=== PATIENT | male | born 1980 | race Caucasian/White ===

== ENCOUNTER 2017-03-13 10:00 | Emergency (ER) | payer BC ==
[~2017-03-13] VITALS: Ht 182.9 cm; Wt 82.0 kg
[~2017-03-13 10:00] MED LIST: NAPROSYN500 MG PO
[2017-03-13] MEDS ORDERED: BACTRIM DS1 TAB PO (10:53)
[2017-03-13 11:04] VITALS: BP 136/74
[2017-03-14] MEDS ORDERED: CEPHALEXIN500 MG PO (23:06)
== END 2017-03-13 11:05 | disposition home or self-care (01) | DRG 603 ==
LOC: ED 10:00
PROC: 0H9EXZZ Drainage of Left Lower Arm Skin, External Approach (ICD-10-PCS; principal; 2017-03-13)
DX: L02.414 Cutaneous abscess of left upper limb (principal)

== ENCOUNTER 2017-03-14 22:11 | Emergency (ER) | payer BC ==
[~2017-03-14] VITALS: Ht 182.9 cm; Wt 77.3 kg
[~2017-03-14 22:11] MED LIST changes: +BACTRIM DS1 TAB PO
[2017-03-14] MEDS ORDERED: CEPHALEXIN500 MG PO (23:06)
[2017-03-14 23:30] VITALS: BP 132/67
== END 2017-03-14 23:30 | disposition home or self-care (01) | DRG 603 ==
LOC: ED 22:11
DX: L02.414 Cutaneous abscess of left upper limb (principal); F17.210 Nicotine dependence, cigarettes, uncomplicated

== ENCOUNTER 2017-07-29 20:36 | Emergency (ER) | payer BC ==
[~2017-07-29] VITALS: Ht 182.9 cm; Wt 75.0 kg
[~2017-07-29 20:36] MED LIST changes: +CEPHALEXIN500 MG PO
[2017-07-29] MEDS ORDERED: ULTRAM50 M1 PO (21:14)
[2017-07-29] MEDS ORDERED: CEPHALEXIN500 MG PO (21:14)
[2017-07-29 21:36] VITALS: BP 110/74
== END 2017-07-29 21:45 | disposition home or self-care (01) | DRG 603 ==
LOC: ED 20:36
DX: L03.114 Cellulitis of left upper limb (principal); L03.012 Cellulitis of left finger; R22.32 Localized swelling, mass and lump, left upper limb

== ENCOUNTER 2017-07-31 19:07 | Emergency (ER) | payer BC ==
[~2017-07-31] VITALS: Ht 182.9 cm; Wt 83.8 kg
[~2017-07-31 19:07] MED LIST changes: +ULTRAM50 M1 PO
[2017-07-31] MEDS ORDERED: BACTRIM DS1 TAB PO (20:10)
[2017-07-31] MEDS ORDERED: LORTAB 10-325 M1 TAB PO (20:10)
[2017-07-31 20:25] VITALS: BP 121/77
== END 2017-07-31 20:25 | disposition home or self-care (01) | DRG 603 ==
LOC: ED 19:07
PROC: 0H9GXZZ Drainage of Left Hand Skin, External Approach (ICD-10-PCS; principal; 2017-07-31)
DX: L02.512 Cutaneous abscess of left hand (principal); B95.61 Methicillin susceptible Staphylococcus aureus infection as the cause of diseases classified elsewhere; F17.210 Nicotine dependence, cigarettes, uncomplicated

== ENCOUNTER 2018-04-28 00:47 | Emergency (ER) | payer BC ==
[~2018-04-28] VITALS: Ht 180.3 cm; Wt 82.6 kg
[~2018-04-28 00:47] MED LIST changes: +LORTAB 10-325 M1 TAB PO
[2018-04-28] MEDS ORDERED: PERCOCET 5/325M1 TAB PO (04:17)
[2018-04-28 04:40] VITALS: BP 118/77
== END 2018-04-28 04:42 | disposition home or self-care (01) | DRG 563 ==
LOC: ED 00:47
DX: S52.501A Unspecified fracture of the lower end of right radius, initial encounter for closed fracture (principal); M25.562 Pain in left knee; F17.210 Nicotine dependence, cigarettes, uncomplicated; W03.XXXA Other fall on same level due to collision with another person, initial encounter; Y93.64 Activity, baseball; Y92.320 Baseball field as the place of occurrence of the external cause

== ENCOUNTER 2018-10-02 16:00 | Emergency (ER) | payer BC ==
[~2018-10-02] VITALS: Ht 180.3 cm; Wt 87.0 kg
[~2018-10-02 16:00] MED LIST changes: +PERCOCET 5/325M1 TAB PO
[2018-10-02] MEDS ORDERED: TRAMADOL HYDROC50 MG PO (18:28)
[2018-10-02 18:35] VITALS: BP 127/75
== END 2018-10-02 18:35 | disposition home or self-care (01) | DRG 204 ==
LOC: ED 16:00
DX: R07.81 Pleurodynia (principal); W01.0XXA Fall on same level from slipping, tripping and stumbling without subsequent striking against object, initial encounter; Y93.66 Activity, soccer; Y92.830 Public park as the place of occurrence of the external cause

== ENCOUNTER 2019-04-29 06:24 | Emergency (ER) | payer BC, OTHER ==
[~2019-04-29] VITALS: Ht 180.3 cm; Wt 84.0 kg
[~2019-04-29 06:24] MED LIST changes: +TRAMADOL HYDROC50 MG PO
[2019-04-29 06:54] LABS: HEMATOCRIT 46.6 % (39.0-50.0); HEMOGLOBIN 16.1 g/dl (14.0-18.0); IMMATURE GRANULOCYTES 0.2 % (0.0-5.0); MEAN CELL VOLUME 87.4 fL CALC (80.0-100.0); MEAN CORPUSCULAR HGB 30.2 pG CALC (26.0-32.0); MEAN CORPUSCULAR HGB CONC 34.5 g/L CALC (32.0-36.0); NEUT# 6.02 thou/uL (1.82-7.42); RED BLOOD COUNT 5.33 mill/uL (4.70-6.10); RED CELL DISTRI WIDTH 13.1 % (11.5-15.5)
[2019-04-29 07:32] LABS: ALBUMIN 4.4 g/dL (3.2-5.0); ALKALINE PHOSPHATASE 63 u/l (38-126); AMYLASE 43 u/l (30-110); ANION GAP 15 (6-22 (CALC)); BILIRUBIN, TOTAL 0.8 mg/dL (0.0-1.4); BUN 19 mg/dL (9-20); BUN/CREATININE RATIO 19 (12-20 (CALC)); CARBON DIOXIDE 24 mmol/l (22-30); CHLORIDE 106 mmol/l (95-108); GFR > 60 ML/MIN (>=60 (CALC)); GFR FOR AFR.AMER. > 60 ML/MIN (>=60 (CALC)); LIPASE 105 u/l (23-300); POTASSIUM 4.3 mmol/l (3.5-5.1); SGOT/AST 21 u/l (17-59); SODIUM 141 mmol/l (137-146); TOTAL PROTEIN 7.1 g/dL (6.3-8.2)
[2019-04-29 08:10] LABS: URINE BLOOD DIPSTICK LARGE (NEGATIVE); URINE GLUCOSE - DIPSTICK NEGATIVE (NEGATIVE); URINE KETONE TRACE mg/dL (NEGATIVE); URINE LEUK ESTERASE NEGATIVE (NEGATIVE); URINE NITRITE - DIPSTICK NEGATIVE (Negative); URINE PH 5.5 (4.5-8.0); URINE PROTEIN - DIPSTICK 30 mg/dL (NEG-TRACE); URINE SPECIFIC GRAVITY >=1.030
[2019-04-29] MEDS ORDERED: MOTRIN400 MG PO (08:10)
[2019-04-29] MEDS ORDERED: TAMSULOSIN0.4 MG PO (08:10)
[2019-04-29] MEDS ORDERED: CEPHALEXIN500 MG PO (08:10)
[2019-04-29 08:11] LABS: URINE BILIRUBIN - DIPSTICK SMALL (NEGATIVE); URINE COLOR DK. YELLOW
[2019-04-29] MEDS ORDERED: HYDROCO/APAP1 TA9 PO (08:12)
[2019-04-29 08:13] LABS: URINE EPITHELIAL CELLS RARE EPI/hpf (0-FEW); URINE MUCUS FEW hpf (NONE-FEW); URINE RBC 25-50 RBC/hpf (0-5)
[2019-04-29 08:34] VITALS: BP 121/64
== END 2019-04-29 08:50 | disposition home or self-care (01) | DRG 694 ==
LOC: ED 06:24
PROVIDERS: Emergency Medicine
DX: N20.2 Calculus of kidney with calculus of ureter (principal); Z87.442 Personal history of urinary calculi; R10.32 Left lower quadrant pain; M54.5 Low back pain; R11.2 Nausea with vomiting, unspecified; F17.290 Nicotine dependence, other tobacco product, uncomplicated

== ENCOUNTER 2021-10-04 18:22 | Emergency (ER) | payer OTHER ==
[~2021-10-04] VITALS: Ht 180.3 cm; Wt 88.0 kg
[~2021-10-04 18:22] MED LIST changes: +HYDROCO/APAP1 TA9 PO; +MOTRIN400 MG PO; +TAMSULOSIN0.4 MG PO
[2021-10-04] MEDS ORDERED: BACTRIM DS1 TAB PO (19:37)
[2021-10-04 20:00] VITALS: BP 119/68
== END 2021-10-04 20:00 | disposition home or self-care (01) ==
LOC: ED 18:22
DX: L03.113 Cellulitis of right upper limb (principal); I10 Essential (primary) hypertension; E78.00 Pure hypercholesterolemia, unspecified

== ENCOUNTER 2023-05-02 07:38 | Emergency (ER) | payer BC ==
[~2023-05-02] VITALS: Ht 180.3 cm; Wt 84.8 kg
[2023-05-02 07:53] VITALS: BP 123/73
[2023-05-02 08:00] VITALS: BP 127/75
[2023-05-02] MEDS ORDERED: OMNI-PAC300 MG PO (08:00)
[2023-05-02 08:31] VITALS: BP 127/75
== END 2023-05-02 08:47 | disposition home or self-care (01) | DRG 605 ==
LOC: ED 07:38
PROC: 0HQFXZZ Repair Right Hand Skin, External Approach (ICD-10-PCS; principal; 2023-05-02)
DX: S61.210A Laceration without foreign body of right index finger without damage to nail, initial encounter (principal); I10 Essential (primary) hypertension; F17.290 Nicotine dependence, other tobacco product, uncomplicated; W23.2XXA Caught, crushed, jammed or pinched between a moving and stationary object, initial encounter